=== PATIENT | female | born 1970 | race Caucasian/White ===

== ENCOUNTER 2019-09-14 15:11 | Emergency (ER) | payer BC ==
[2019-09-14 16:04] VITALS: BP 153/86
--- NOTE | 2019-09-14 16:06 | UC ---
Respiratory Complaint HPI - HPI Summary HPI Summary: 49-year-old female with cold symptoms over the past week and tight nonproductive cough. - History of Current Complaint Chief Complaint: UCRespiratory Stated Complaint: COUGH,CONGESTION Time Seen by Provider: 09/14/19 15:56 Hx Obtained From: Patient Hx Last Menstrual Period: n/a ?: No Onset/Duration: Gradual Onset, Lasting Days Timing: Intermittent Episodes Severity Initially: Mild Severity Currently: Mild Pain Intensity: 2 Character: Cough: Nonproductive Aggravating Factors: Nothing Alleviating Factors: Nothing Associated Signs And Symptoms: Positive: Wheezing, URI, Nasal Congestion - Allergies/Home Medications Allergies/Adverse Reactions: Allergies Allergy/AdvReac Type Severity Reaction Status Date / Time oxycodone AdvReac "Projectile Verified 09/14/19 15:59 vomiting" Home Medications: Home Medications D-Methorphan/PE/Acetaminophen [Vicks Dayquil Cold & Flu] 2 cap PO Q6H PRN [History Confirmed 09/14/19] Levothyroxine TAB* [Synthroid TAB*] 88 mcg PO DAILY 09/14/19 [History Confirmed 09/14/19] PMH/Surg Hx/FS Hx/Imm Hx Previously Healthy: Yes Endocrine History: Thyroid Disease Respiratory History: Asthma - Surgical History Surgical History: Yes Surgery Procedure, Year, and Place: Left Knee Arthroscopy, [place] - Family History Known Family History: Positive: None - Social History Alcohol Use: Rare Substance Use Type: None Smoking Status (MU): Never Smoked Tobacco Review of Systems All Other Systems Reviewed And Are Negative: Yes ENT: Positive: Nasal Discharge Respiratory: Positive: Cough - Nonproductive cough. Is Patient Immunocompromised?: No Physical Exam Triage Information Reviewed: Yes Appearance: Well-Appearing, No Pain Distress, Well-Nourished Vital Signs: Initial Vital Signs Temp 100.2 F 09/14/19 15:55 Pulse 100 09/14/19 15:55 Resp 18 09/14/19 15:55 BP 153/86 09/14/19 15:55 Pulse Ox 99 09/14/19 15:55 Vital Signs Reviewed: Yes ENT: Positive: Hearing grossly normal, Pharynx normal, TMs normal, Uvula midline Neck: Positive: Supple, Nontender, No Lymphadenopathy Respiratory: Positive: No respiratory distress, No accessory muscle use, Rhonchi , Wheezing - Scattered rhonchi and wheezing throughout, no distress. Cardiovascular: Positive: RRR, No Murmur, Pulses Normal, Brisk Capillary Refill Musculoskeletal Exam: Normal Neurological Exam: Normal Psychological Exam: Normal Skin Exam: Normal Respiratory Course/Dx - Course Course Of Treatment: Chest x-ray:FINDINGS: The lungs are clear. There is no pleural effusion. The cardiomediastinal silhouette is within normal limits. The upper abdominal contents are normal. Osseous structures are unremarkable. IMPRESSION: No acute cardiopulmonary process by radiograph DuoNeb treatment: Patient felt like she was moving more air. She has less wheezing but continued rhonchi however her cough is now loose. She stated that usually Tessalon Perles does not work for her cough therefore I gave her some Robitussin with codeine. She is also when she is an inhaler today and start prednisone as well. I am going to treat her for possible sinusitis as well as bronchitis. - Differential Dx/Diagnosis Provider Diagnosis: Bronchitis Discharge ED - Sign-Out/Discharge Documenting (check all that apply): Patient Departure All imaging exams completed and their final reports reviewed: Yes - Discharge Plan Condition: Fair Disposition: HOME Prescriptions: Albuterol HFA INHALER* [Ventolin HFA Inhaler*] 2 puff INH Q4H PRN 5 Days #1 mdi PRN Reason: Wheezing Amoxicillin/Clavulanate TAB* [Augmentin TAB 875*] 875 mg PO BID 10 Days #20 tab guaiFENesin/CODIENE 100mg/10mg [Robitussin AC 100Mg/10Mg in 5 ml] 10 ml PO Q4H PRN #180 ml MDD 60 ml PRN Reason: Cough predniSONE TAB* [Deltasone 10 MG TAB*] 10 mg PO DAILY 12 Days #30 tab Patient Education Materials: Acute Bronchitis (ED) Referrals: Dorita Reyes PA [Primary Care Provider] - Additional Instructions: Increase fluids, rest, take the Augmentin with food, take the prednisone with food, use your albuterol inhaler 2 puffs every 4-6 hours as needed for tight cough or wheezing. Definite follow-up with your primary care provider in 3 or 4 days if no improvement. If you have worsening symptoms, difficulty breathing , chest pain your to go to the emergency room for further treatment. - Billing Disposition and Condition Condition: FAIR Disposition: Home
[2019-09-14] MEDS ORDERED: Albuterol/Ipratropium NEB.SOL* Albuterol 2.5 MG/Ipratropium 0.5 MG 3 ML INH ONE (16:09)
== END 2019-09-14 17:48 | disposition home or self-care (01) ==
LOC: UCCORT 15:11
DX: J45.909 Unspecified asthma, uncomplicated (principal); J34.89 Other specified disorders of nose and nasal sinuses; E07.9 Disorder of thyroid, unspecified; Z88.5 Allergy status to narcotic agent; Z79.890 Hormone replacement therapy
CPT/HCPCS: 71046; 99212; A9270-GY; G0463

== ENCOUNTER 2019-11-11 12:56 | Emergency (ER) | payer BC ==
[2019-11-11 13:53] VITALS: BP 171/87
[2019-11-11 14:07] LABS: Influenza A Molecular Negative (Negative); Influenza B Molecular Negative (Negative)
--- NOTE | 2019-11-11 14:47 | UC ---
FLU HPI - HPI Summary HPI Summary: 49-year-old woman comes in with a chief complaint of influenza-like illness for 1 day. She's had fevers chills body aches. No rhinorrhea no sore throat. She' s had a cough but no chest congestion. Denies any urinary or bowel symptoms. She has tried [id number] medicines which helped minimally with her symptoms - History of Current Complaint Chief Complaint: UCGeneralIllness Stated Complaint: POSS FLU Time Seen by Provider: 11/11/19 14:38 Hx Last Menstrual Period: n/a Pain Intensity: 8 - Allergy/Home Medications Allergies/Adverse Reactions: Allergies Allergy/AdvReac Type Severity Reaction Status Date / Time oxycodone AdvReac "Projectile Verified 11/11/19 13:50 vomiting" PMH/Surg Hx/FS Hx/Imm Hx Previously Healthy: Yes Endocrine History: Hypothyroidism - Surgical History Surgical History: Yes Surgery Procedure, Year, and Place: Left Knee Arthroscopy, 2013, [place] - Family History Known Family History: Positive: None - Social History Alcohol Use: Rare Substance Use Type: None Smoking Status (MU): Never Smoked Tobacco Review of Systems All Other Systems Reviewed And Are Negative: Yes Constitutional: Positive: Fever, Chills, Other - SEE HPI Skin: Positive: Negative Eyes: Positive: Negative ENT: Positive: Other - SEE HPI Respiratory: Positive: Cough Cardiovascular: Positive: Negative Gastrointestinal: Positive: Negative Genitourinary: Positive: Negative Motor: Positive: Negative Neurovascular: Positive: Negative Musculoskeletal: Positive: Myalgia Neurological/Mental Status: Positive: Negative Psychological: Positive: Negative Is Patient Immunocompromised?: No Physical Exam Triage Information Reviewed: Yes Appearance: No Pain Distress, Well-Nourished, Ill-Appearing - MILD Vital Signs: Initial Vital Signs Temp 99.3 F 11/11/19 13:49 Pulse 99 11/11/19 13:49 Resp 20 11/11/19 13:49 BP 171/87 11/11/19 13:49 Pulse Ox 100 11/11/19 13:49 Vital Signs Reviewed: Yes Eye Exam: Normal Eyes: Positive: Conjunctiva Clear ENT: Positive: Pharynx normal, TMs normal Neck: Positive: Supple Respiratory: Positive: Lungs clear, Normal breath sounds, No respiratory distress Cardiovascular: Positive: RRR Musculoskeletal: Positive: Strength Intact, ROM Intact Neurological: Positive: Alert, Muscle Tone Normal Psychological: Positive: Age Appropriate Behavior Skin Exam: Normal Flu Course/Dx - Course Course Of Treatment: Influenza was negative. No focal bacterial infection apparent. Patient denies UTI symptoms or any abdominal complaints. Most likely an influenza-like illness and will treat as such with symptomatic treatment and get reevaluated if worse or any questions or concerns. - Differential Dx/Diagnosis Provider Diagnosis: Influenza-like illness Discharge ED - Sign-Out/Discharge Documenting (check all that apply): Patient Departure All imaging exams completed and their final reports reviewed: No Studies - Discharge Plan Condition: Stable Disposition: HOME Patient Education Materials: Viral Syndrome (ED) Forms: *Work Release Referrals: Dorita Reyes PA [Primary Care Provider] - Additional Instructions: FOLLOW UP WITH YOUR DOCTOR IF NOT COMPLETELY IMPROVED. GET REEVALUATED SOONER IF NOT IMPROVED OR WORSE OR ANY QUESTIONS OR CONCERNS. - Billing Disposition and Condition Condition: STABLE Disposition: Home
[2019-11-11] MEDS ORDERED: Ibuprofen TAB* 600 MG PO ONE (14:48)
== END 2019-11-11 14:57 | disposition home or self-care (01) ==
LOC: UCCORT 12:56
DX: R05 Cough (principal); M79.10 Myalgia, unspecified site; R50.9 Fever, unspecified; Z88.5 Allergy status to narcotic agent
CPT/HCPCS: 99212; A9270-GY; G0463